=== PATIENT | male | born 1940 | race Caucasian/White ===

== ENCOUNTER 2019-04-27 13:41 | Emergency (ER) | payer MEDICARE, BC ==
--- OUTSIDE RECORDS SUMMARY | 2019-04-27 13:50 | XMS REPORT | Continuity of Care Document ---
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 Onset: 06/23/2012 Benign essential hypertension Gene Francis M.D. Onset: 06/23/2012 Mitral valve disorder Gene Francis M.D. Onset: 06/23/2012 Paroxysmal supraventricular tachycardia Gene Francis M.D. Onset: 11/24 Aortic valve disorder Gene Francis M.D. Onset: 05/31/2013 Coronary arteriosclerosis Lianet Atwood M.D. Onset: 06/19/2013 Essential hypertension Gene Francis M.D. Onset: 08/21/2013 Tibialis tendinitis Edinson Broderick MD Onset: 07/27/2017 Tendon contracture Edinson Broderick MD Onset: 07/27/2017 Social History Type Date Description Comments Sex Unknown Tobacco Use Start: Unknown Never Smoked Cigarettes Smoking Status Reviewed: 04/14/19 Never Smoked Cigarettes ETOH Use Drinks 3 Alcoholic Beverages Per Day Tobacco Use Start: Unknown Patient has never smoked Recreational Drug Use Denies Drug Use Exercise Type/Frequency Does not exercise walking gardening weather permitting Allergies, Adverse Reactions, Alerts Active Allergies Reaction Severity Comments Date Penicillins rash 06/23/2012 Sulfa rash 06/23/2012 Inactive Allergies NKDA 06/23/2012 Medications Active Medications SIG Qnty Indications Ordering Provider Date Amlodipine Besylate 1 by mouth every 30tabs Gene Yap 09/07/2018 day Dav Francis 2.5mg Tablets Aldactone 1 by mouth every 90tabs Gene Yap 11/17/2017 25mg Tablets day Dav Francis Aspirin Childrens 1 tab po daily 30units Gene Yap 02/04/2012 81mg Dav Francis Chewtabs Vitamin D3 Super 1 po daily Unknown Strength 2000Unit Tablets Naprosyn 1 by mouth every Unknown 500mg Tablets morning Gabapentin 1 capsule bid Unknown 100mg Capsules Medications Administered in Office Medication SIG Qnty Indications Ordering Provider Date Depomedrol 40MG Ferny Wynne M.D. 09/09/2016 Injection Immunizations Description No Information Available Vital Signs Date Vital Result Comment 04/14/2019 10:31am Height 65 inches 5'5" Weight 188.00 lb Heart Rate 71 /min BP Systolic Sitting 120 mmHg BP Diastolic Sitting 70 mmHg Pain Level 2 BMI (Body Mass Index) 31.3 kg/m2 03/20/2019 2:00pm Height 65 inches 5'5" Weight 188.00 lb BP Systolic 142 mmHg BP Diastolic 84 mmHg Respiratory Rate 15 /min Body Temperature 98.2 F Pain Level 2 BMI (Body Mass Index) 31.3 kg/m2 Results Description No Information Available Procedures Date Code Description Status 02/21/2019 21643 EKG Tracing & Interpretation Completed 02/16/2019 69183 Nerve Conduction 11-12 Studies Completed 02/16/2019 16435 Needle Electromyography Complete, Five Or More Muscles Completed Studied Medical Devices Description No Information Available Encounters Type Date Location Provider Dx Diagnosis Office Visit 03/20/2019 [facility] Mitchell, G56.21 Lesion of ulnar 1:30p [facility] Demarco nerve, right upper limb Office Visit 02/21/2019 [facility] Gene Yap M54.2 Cervicalgia 3:20p Dav Francis R06.00 Dyspnea, unspecified I35.0 Nonrheumatic aortic (valve) stenosis I44.0 Atrioventricular block, first degree I10 Essential (primary) hypertension R00.1 Bradycardia, unspecified Office Visit 02/10/2019 11:30a [facility] M54.2 Cervicalgia Services Of Gene Coreas MD M47.22 Other spondylosis with radiculopathy, cervical region Assessments Date Code Description Provider 04/14/2019 M54.12 Cervical radiculopathy Ever Coreas MD 04/14/2019 M47.22 Other spondylosis with radiculopathy, Ever Coreas MD cervical region 03/20/2019 G56.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 03/07/2019 M54.12 Cervical radiculopathy REGINALDO Jones 02/21/2019 M54.2 Cervicalgia Gene Francis M.D. 02/21/2019 R06.00 Dyspnea, unspecified Gene Francis M.D. 02/21/2019 I35.0 Nonrheumatic aortic (valve) stenosis Gene Francis M.D. 02/21/2019 I44.0 Atrioventricular block, first degree Gene Francis M.D. 02/21/2019 I10 Essential (primary) hypertension Gene Francis M.D. 02/21/2019 R00.1 Bradycardia, unspecified Gene Francis M.D. 02/16/2019 M47.22 Other spondylosis with radiculopathy, Cheo Parrish MD cervical region 02/10/2019 M54.2 Cervicalgia Ever Coreas MD 02/10/2019 M47.22 Other spondylosis with radiculopathy, Ever Coreas MD cervical region Plan of Treatment Future Appointment(s):04/25/2019 2:00 pm - Basia Mcbride, N.P. at [facility]04/14/2019 - Ever Coreas, MDM54.12 Radiculopathy, cervical tmufypA88.22 Other spondylosis with radiculopathy, cervical regionFollow up:Rv prn Functional Status Description No Information Available Mental Status Description No Information Available Referrals Description No Information Available
--- OUTSIDE RECORDS SUMMARY | 2019-04-27 13:50 | XMS REPORT | Continuity of Care Document ---
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 Onset: 02/16/2012 Pure hypercholesterolemia Gene Farncis M.D. Onset: 06/23/2012 Benign essential hypertension Gene Francis M.D. Onset: 06/23/2012 Mitral valve disorder Gene Francis M.D. Onset: 06/23/2012 Paroxysmal supraventricular tachycardia Gene Francis M.D. Onset: 11/24 Aortic valve disorder Gene Francis M.D. Onset: 05/31/2013 Coronary arteriosclerosis Lianet Atwood M.D. Onset: 06/19/2013 Essential hypertension Gene Francis M.D. Onset: 08/21/2013 Tibialis tendinitis Edinson Broderick MD Onset: 07/27/2017 Tendon contracture Edinson Broderick MD Onset: 07/27/2017 Edema Edinson Broderick MD Onset: 04/26/2019 Localized, primary osteoarthritis of the Edinson Broderick MD Onset: 04/26/2019 ankle and/or foot Social History Type Date Description Comments Sex Unknown Tobacco Use Start: Unknown Never Smoked Cigarettes Smoking Status Reviewed: 04/26/19 Never Smoked Cigarettes ETOH Use Drinks 3 Alcoholic Beverages Per Day Tobacco Use Start: Unknown Patient has never smoked Recreational Drug Use Denies Drug Use Exercise Type/Frequency Does not exercise walking gardening weather permitting Allergies, Adverse Reactions, Alerts Active Allergies Reaction Severity Comments Date Penicillins rash 06/23/2012 Sulfa rash 06/23/2012 Inactive Allergies NKDA 06/23/2012 Medications Active Medications SIG Qnty Indications Ordering Provider Date Ibuprofen 200 400-600mg every Unknown 04/24/2019 200mg 6 hours as Tablets needed for pain. Amlodipine Besylate 1 by mouth every 90tabs Basia Mcbride, 09/07/2018 day N.P. 2.5mg Tablets Aldactone 1 by mouth every 90tabs Gene Yap 11/17/2017 25mg Tablets day Dav Francis Aspirin Childrens 1 tab po daily 30units Gene Yap 02/04/2012 81mg Dav Francis Chewtabs Vitamin D3 Super 1 po daily Unknown Strength 2000Unit Tablets Medications Administered in Office Medication SIG Qnty Indications Ordering Provider Date Depomedrol 40MG Ferny Wynne M.D. 09/09/2016 Injection Immunizations Description No Information Available Vital Signs Date Vital Result Comment 04/26/2019 3:48pm Height 65 inches 5'5" Weight 196.00 lb Heart Rate 72 /min BP Systolic 134 mmHg BP Diastolic 88 mmHg Respiratory Rate 15 /min Body Temperature 96.3 F Pain Level 7 BMI (Body Mass Index) 32.6 kg/m2 04/25/2019 1:53pm Height 65 inches 5'5" Weight 194.50 lb with crocs Heart Rate 60 /min radial, regular BP Systolic 152 mmHg recheck BP Diastolic 82 mmHg recheck BP Systolic Sitting 140 mmHg Ra, reg cuff BP Diastolic Sitting 88 mmHg Ra, reg cuff BP Systolic Standing 144 mmHg Ra, reg cuff BP Diastolic Standing 92 mmHg Ra, reg cuff BMI (Body Mass Index) 32.4 kg/m2 Ejection Fraction 60%-65% echo 10/03/18 Results Description No Information Available Procedures Date Code Description Status 02/21/2019 17444 EKG Tracing & Interpretation Completed 02/16/2019 51621 Nerve Conduction 11-12 Studies Completed 02/16/2019 63861 Needle Electromyography Complete, Five Or More Muscles Completed Studied Medical Devices Description No Information Available Encounters Type Date Location Provider Dx Diagnosis Office Visit 04/14/2019 [facility] M47.22 Other spondylosis 10:30a Services Of Gene Coreas MD with radiculopathy, cervical region M48.02 Spinal stenosis, cervical region Office Visit 03/20/2019 [facility] Dulce G56.21 Lesion of ulnar 1:30p at Adelso Mitchell M.D. nerve, right upper limb Office Visit 03/07/2019 Neuro[facility] Mohini Tejada, M54.12 Radiculopathy, 2:30p Services Of Gene HAIR cervical region Office Visit 02/21/2019 [facility] Gene Yap M54.2 Cervicalgia 3:20p Dav Francis R06.00 Dyspnea, unspecified I35.0 Nonrheumatic aortic (valve) stenosis I44.0 Atrioventricular block, first degree I10 Essential (primary) hypertension R00.1 Bradycardia, unspecified Office Visit 02/10/2019 11:30a [facility] M54.2 Cervicalgia Services Of Gene Coreas MD M47.22 Other spondylosis with radiculopathy, cervical region Assessments Date Code Description Provider 04/26/2019 M76.821 Posterior tibial tendinitis, right leg Edinson Broderick MD 04/26/2019 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 04/25/2019 I44.0 Atrioventricular block, first degree Basia Mcbride, N.P. 04/25/2019 I10 Essential (primary) hypertension Basia Mcbride N.P. 04/25/2019 E78.00 Pure hypercholesterolemia, unspecified Basia Mcbride, N.P. 04/14/2019 M47.22 Other spondylosis with radiculopathy, Ever Coreas MD cervical region 04/14/2019 M48.02 Spinal stenosis, cervical region Ever Coreas MD 03/20/2019 G56.21 Lesion of ulnar nerve, right [...] MD cervical region Plan of Treatment Future Appointment(s):07/28/2019 1:00 pm - Edinson Broderick MD at [facility] at [facility]/26/2019 - Edinson Broderick, MDM76.821 Posterior tibial tendinitis, right legReferral:[facility],Follow up: Follow Up: 3 months Needs hold and call ultrasound tomorrow for Right legM19.071 Primary osteoarthritis, right ankle and footR60.0 Localized edemaNew Xrays:VL Lower Ext Veins Right, Ordered: 04/26/19 Functional Status Description No Information Available Mental Status Description No Information Available Referrals Refer to Reason for Referral Status Appt Date [facility] Orthotics: Right Left Bilateral Sent Full-length custom Accommodative Medial Post 3/4 length custom Semi-Rigid Deep Heel UCBL Rigid Darden's extension Carbon fiber baseplate to shield 1st MP joint Carbon fiber baseplate, full length to shield midfoot Other: Braces: Right Left Bilateral Solid AFO Articulated AFO Kailey [employer]ace (custom leather ankle gauntlet) DONNA (Charcot Restraint Orthotic Walker) Marianne Brace Other: [address] [place] [address] [address] [place] [address] [phone]
--- OUTSIDE RECORDS SUMMARY | 2019-04-27 13:50 | XMS REPORT | Continuity of Care Document ---
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 Onset: 02/16/2012 Pure hypercholesterolemia Gene Francis M.D. [...] Unknown Never Smoked Cigarettes Smoking Status Reviewed: 03/07/19 Never Smoked Cigarettes ETOH Use Drinks 3 [...] Available Vital Signs Date Vital Result Comment 03/07/2019 2:33pm Height 65 inches 5'5" Weight 188.00 lb Heart Rate 77 /min BP Systolic Sitting 158 mmHg BP Diastolic Sitting 96 mmHg Respiratory Rate 18 /min Pain Level 7 O2 % BldC Oximetry 96 % BMI (Body Mass Index) 31.3 kg/m2 02/21/2019 3:15pm Height 65 inches 5'5" Weight 188.50 lb Heart Rate 78 /min BP Systolic Sitting 164 mmHg LA, reg BP Diastolic Sitting 86 mmHg LA, reg BP Systolic Standing 162 mmHg LA, reg BP Diastolic Standing 84 mmHg LA, reg BP Systolic Lying Down 148 mmHg la repeat sitting BP Diastolic Lying Down 82 mmHg la repeat sitting BMI (Body Mass Index) 31.4 kg/m2 Ejection Fraction 60%-65% 10/03/2018 echo Results Test Date Facility Test Result H/L Range Note Vitamin B12 And 09/12/2018 [facility] Vitamin B12 403 pg/mL Normal 180-914 1 Folate Serum [address] [place] [address] [phone] Folic Acid (Folate) 7.55 ng/mL >3.99 Lipid Profile 09/08/2018 [facility] Triglycerides 101 mg/dL 2 (Trig/Chol/HDL) [address] [place] [address] [phone] Cholesterol 225 mg/dL 3 HDL Cholesterol 72.0 mg/dL 4 LDL Cholesterol 133 mg/dL 5 CBC Auto 09/08/2018 [facility] White Blood 4.0 10^3/uL Normal 3.5-10.[address] [place] [address] [phone] Red Blood Count 3.97 10^6/uL Low 4.00-5.40 Hemoglobin 15.4 g/dL Normal 14.0-18.0 Hematocrit 44 % Normal 42-52 Mean Corpuscular Volume 111 fL High 80-94 Mean Corpuscular Hemoglobin 39 pg High 27-31 Mean Corpuscular HGB Conc 35 g/dL Normal 31-36 Red Cell Distribution Width 13 % Normal 10.5-15 Platelet Count 216 10^3/uL Normal 150-450 Mean Platelet Volume 7.8 fL Normal 7.4-10.4 Abs Neutrophils 2.5 10^3/uL Normal 1.5-7.7 Abs Lymphocytes 0.8 10^3/uL Low 1.0-4.8 Abs Monocytes 0.5 10^3/uL Normal 0-0.8 Abs Eosinophils 0.2 10^3/uL Normal 0-0.6 Abs Basophils 0.1 10^3/uL Normal 0-0.2 Abs Nucleated RBC 0 10^3/uL Granulocyte % 62.4 % Lymphocyte % 20.2 % Monocyte % 12.0 % Eosinophil % 3.9 % Basophil % 1.5 % Nucleated Red Blood Cells % 0.1 Laboratory 09/08/2018 [facility] TSH (Thyroid 2.16 Normal 0.34 -5.60 test finding [address] Stim Horm) mcIU/[place] [address] [phone] Cell 09/08/2018 [facility] Macrocytosis 2+ Morphology [address] [place] [address] [phone] CBC Auto Diff 09/08/2018 [facility] White Blood 4.0 Normal 3.5 -10.[address] Count 10^3/[place] [address] [phone] Red Blood Count 3.97 10^6/uL Low 4.00-5.40 Hemoglobin 15.4 g/dL Normal 14.0-18.0 Hematocrit 44 % Normal 42-52 Mean Corpuscular Volume 111 fL High 80-94 Mean Corpuscular Hemoglobin 39 pg High 27-31 Mean Corpuscular HGB Conc 35 g/dL Normal 31-36 Red Cell Distribution Width 13 % Normal 10.5-15 Platelet Count 216 10^3/uL Normal 150-450 Mean Platelet Volume 7.8 fL Normal 7.4-10.4 Abs Neutrophils 2.5 10^3/uL Normal 1.5-7.7 Abs Lymphocytes 0.8 10^3/uL Low 1.0-4.8 Abs Monocytes 0.5 10^3/uL Normal 0-0.8 Abs Eosinophils 0.2 10^3/uL Normal 0-0.6 Abs Basophils 0.1 10^3/uL Normal 0-0.2 Abs Nucleated RBC 0 10^3/uL Granulocyte % 62.4 % Lymphocyte % 20.2 % Monocyte % 12.0 % Eosinophil % 3.9 % Basophil % 1.5 % Nucleated Red Blood Cells % 0.1 Lipid Panel - 09/08/2018 [facility] Creatine 71 U/L Normal 10- [address] Kinase(CK) [place] [address] [phone] Comp Metabolic 09/08/2018 [facility] Sodium 136 Normal 135- [address] mmol/[place] [address] [phone] Potassium 4.4 mmol/L Normal 3.5-5.0 Chloride 100 mmol/L Low 101-111 Co2 Carbon Dioxide 27 mmol/L Normal 22-32 Anion Gap 9 mmol/L Normal 2-11 Glucose 101 mg/dL High 70-100 Blood Urea Nitrogen 13 mg/dL Normal 6-24 Creatinine 0.77 mg/dL Normal 0.67-1.17 BUN/Creatinine Ratio 16.9 Normal 8-20 Calcium 9.2 mg/dL Normal 8.6-10.3 Total Protein 7.2 g/dL Normal 6.4-8.9 Albumin 4.0 g/dL Normal 3.2-5.2 Globulin 3.2 g/dL Normal 2-4 Albumin/Globulin Ratio 1.3 Normal 1-3 Total Bilirubin 0.70 mg/dL Normal 0.2-1.0 Alkaline Phosphatase 65 U/L Normal 34-104 Alt 28 U/L Normal 7-52 Ast 29 U/L Normal 13-39 Egfr Non- 98.0 >60 Egfr 118.5 >60 6 Lipid Profile 09/08/2018 [facility] Triglycerides 101 mg/dL 7 (Trig/Chol/HDL) [address] [place] [address] [phone] Cholesterol 225 mg/dL 8 HDL Cholesterol 72.0 mg/dL 9 LDL Cholesterol 133 mg/dL 10 Laboratory 09/08/2018 [facility] TSH (Thyroid 2.16 Normal 0.34 -5.60 test finding [address] Stim Horm) mcIU/[place] [address] [phone] B-Type Natriuretic Peptide BNP 30 pg/mL <=100 Cell Morphology 09/08/2018 [facility] Macrocytosis 2+ [address] [place] [address] [phone] Comp Metabolic 09/08/2018 [facility] Sodium 136 Normal 135-[address] mmol/L 5 [place] [address] [phone] Potassium 4.4 mmol/L Normal 3.5-5.0 Chloride 100 mmol/L Low 101-111 Co2 Carbon Dioxide 27 mmol/L Normal 22-32 Anion Gap 9 mmol/L Normal 2-11 Glucose 101 mg/dL High 70-100 Blood Urea Nitrogen 13 mg/dL Normal 6-24 Creatinine 0.77 mg/dL Normal 0.67-1.17 BUN/Creatinine Ratio 16.9 Normal 8-20 Calcium 9.2 mg/dL Normal 8.6-10.3 Total Protein 7.2 g/dL Normal 6.4-8.9 Albumin 4.0 g/dL Normal 3.2-5.2 Globulin 3.2 g/dL Normal 2-4 Albumin/Globulin Ratio 1.3 Normal 1-3 Total Bilirubin 0.70 mg/dL Normal 0.2-1.0 Alkaline Phosphatase 65 U/L Normal 34-104 Alt 28 U/L Normal 7-52 Ast 29 U/L Normal 13-39 Egfr Non- 98.0 >60 Egfr 118.5 >60 11 Lipid Panel - 09/08/2018 [facility] Creatine 71 U/L Normal 10- [address] Kinase(CK) [place] [address] [phone] Laboratory test 09/08/2018 [facility] B-Type 30 pg/mL <=[address] [place] [address] Peptide BNP [phone] Normal Range 180 to 914 Indeterminate Range 145 to 180 Deficient Range <145 2 Desirable: <150 Borderline High: 150-199 High: 200-499 Very High: >500 3 Desirable: <200 Borderline High: 200-239 High: >239 4 Low: <40 Desirable: 40-60 High: >60 5 Desirable: <100 Near Optimal: 100-129 Borderline High: 130-159 High: 160-189 Very High: >189 6 Because ethnic data is not always readily available, this report includes an eGFR for both -Americans and non- Americans. The National Kidney Disease Education Program (NKDEP) does not endorse the use of the MDRD equation for patients that are not between the ages of 18 and 70, are , have extremes of body size, muscle mass, or nutritional status, or are non- or non-. According to the National Kidney Foundation, irrespective of diagnosis, the stage of the disease is based on the level of kidney function: Stage Description GFR(mL/min/1.73 m(2)) 1 Kidney damage with normal or decreased GFR 90 2 Kidney damage with mild decrease in GFR 60-89 3 Moderate decrease in GFR 30-59 4 Severe decrease in GFR 15-29 5 Kidney failure <15 (or dialysis) 7 Desirable: <150 Borderline High: 150-199 High: 200-499 Very High: >500 8 Desirable: <200 Borderline High: 200-239 High: >239 9 Low: <40 Desirable: 40-60 High: >60 10 Desirable: <100 Near Optimal: 100-129 Borderline High: 130-159 High: 160-189 Very High: >189 11 Because ethnic data is not always readily available, this report includes an eGFR for both -Americans and non- Americans. The National Kidney Disease Education Program (NKDEP) does not endorse the use of the MDRD equation for patients that are not between the ages of 18 and 70, are , have extremes of body size, muscle mass, or nutritional status, or are non- or non-. According to the National Kidney Foundation, irrespective of diagnosis, the stage of the disease is based on the level of kidney function: Stage Description GFR(mL/min/1.73 m(2)) 1 Kidney damage with normal or decreased GFR 90 2 Kidney damage with mild decrease in GFR 60-89 3 Moderate decrease in GFR 30-59 4 Severe decrease in GFR 15-29 5 Kidney failure <15 (or dialysis) Procedures Date Code Description Status 02/21/2019 60497 EKG Tracing & Interpretation Completed 02/16/2019 57524 Nerve Conduction 11-12 Studies Completed 02/16/2019 74102 Needle Electromyography Complete, Five Or More Muscles Completed Studied 10/03/2018 89423 ECHO Transthoracic, Real-Time 2D With Doppler And Color Completed Flow 10/03/2018 20475 ECHO Transthoracic, Real-Time 2D With Doppler And Color Completed Flow Medical Devices Description No Information Available Encounters Type Date Location Provider Dx Diagnosis Office Visit 02/21/2019 [facility] Gene Francis, M54.2 Cervicalgia 3:20p M.Claude R06.00 Dyspnea, unspecified I35.0 Nonrheumatic aortic (valve) stenosis I44.0 Atrioventricular block, first degree I10 Essential (primary) hypertension R00.1 Bradycardia, unspecified Office Visit 02/10/2019 11:30a [facility] M54.2 Cervicalgia Services Of Gene Coreas MD M47.22 Other spondylosis with radiculopathy, cervical region Office Visit 10/10/2018 10:30a [facility] Basia Hedrick R06.00 Dyspnea, Foster, N.P. unspecified I35.0 Nonrheumatic aortic (valve) stenosis I44.0 Atrioventricular block, first degree I10 Essential (primary) hypertension E78.00 Pure hypercholesterolemia, unspecified Assessments Date Code Description Provider 03/07/2019 M54.12 Cervical radiculopathy REGINALDO Jones 02/21/2019 [...] with radiculopathy, Ever Coreas MD cervical region 10/10/2018 R06.00 Dyspnea, unspecified Basia Mcbride, N.P. 10/10/2018 I35.0 Nonrheumatic aortic (valve) stenosis Basia Mcbride, N.P. 10/10/2018 I44.0 Atrioventricular block, first degree Basia Mcbride, N.P. 10/10/2018 I10 Essential (primary) hypertension Basia Mcbride, N.P. 10/10/2018 E78.00 Pure hypercholesterolemia, unspecified Basia Mcbride, N.P. 10/03/2018 R06.00 Dyspnea, unspecified Gene Francis M.D. 10/03/2018 R06.00 Dyspnea, unspecified [facility] 10/03/2018 I35.0 Nonrheumatic aortic (valve) stenosis [facility] Plan of Treatment Future Appointment(s):04/25/2019 2:00 pm - Basia Mcbride[facility] N.P. at [facility]04/14/2019 10:30 am - Ever Coreas MD at [facility]03/07/2019 - Mohini Tejada PAM54.12 Radiculopathy, cervical regionNew Therapy:Physical TherapyFollow up:RTC in [address] Coreas Functional Status Description No Information Available Mental Status Description No Information Available Referrals Description No Information Available
--- OUTSIDE RECORDS SUMMARY | 2019-04-27 13:50 | XMS REPORT | Continuity of Care Document ---
:1940 External Reference #:[id number] Author Name Basia Mcbride N.P. (transmitted by agent of provider Felicita Shelton) Address [address] 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 Amlodipine Besylate 1 by mouth every 30tabs [...] Available Vital Signs Date Vital Result Comment 04/25/2019 1:53pm Height 65 inches 5'5" Weight [...] 32.4 kg/m2 Ejection Fraction 60%-65% echo 10/03/18 04/14/2019 10:31am Height 65 inches 5'5" Weight 188.00 lb Heart Rate 71 /min BP Systolic Sitting 120 mmHg BP Diastolic Sitting 70 mmHg Pain Level 2 BMI (Body Mass Index) 31.3 kg/m2 Results Description No Information Available Procedures Date Code Description Status 02/21/2019 86580 EKG Tracing & Interpretation Completed 02/16/2019 38904 Nerve Conduction 11-12 Studies Completed 02/16/2019 04776 Needle Electromyography Complete, Five Or More Muscles Completed Studied Medical Devices Description No Information Available Encounters Type Date Location Provider Dx Diagnosis Office Visit 04/14/2019 [facility] 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 nerve, right upper limb Office Visit 03/07/2019 [facility] Tejada, M54.12 Radiculopathy, 2:30p [facility] cervical region Office Visit 02/21/2019 [facility] Gene Ypa M54.2 Cervicalgia 3:20p Dav Francis R06.00 Dyspnea, unspecified I35.0 Nonrheumatic aortic (valve) stenosis I44.0 Atrioventricular block, first degree I10 Essential (primary) hypertension R00.1 Bradycardia, unspecified Office Visit 02/10/2019 11:30a [facility] M54.2 C[facility] MD M47.22 Other spondylosis with radiculopathy, cervical region Assessments Date Code Description Provider 04/25/2019 I35.0 Nonrheumatic aortic (valve) stenosis Basia Mcbride, N.P. 04/25/2019 I44.0 Atrioventricular block, first degree Basia Mcbride, N.P. 04/25/2019 I10 Essential (primary) hypertension Basia Mcbride, N.P. 04/25/2019 E78.00 Pure hypercholesterolemia, unspecified Basia [...] MD cervical region Plan of Treatment Future Appointment(s):04/26/2019 3:15 pm - Edinson Broderick MD at [facility] [place]/25/2019 - Basia Mcbride N.P.I35.0 Nonrheumatic aortic (valve) stenosisNew Orders:Echocardiogram, Ordered: 04/25/19Follow up:[facility] 2019 with echo fuwhsS59.0 Atrioventricular block, first occlyeM47 Essential ( primary) hypertensionRecommendations:BPs look good have cuff rechecked at ortho office and call us if it is not accurate.E78.00 Pure hypercholesterolemia, unspecified Functional Status Description No Information Available Mental Status Description No Information Available Referrals Description No Information Available
--- OUTSIDE RECORDS SUMMARY | 2019-04-27 13:50 | XMS REPORT | Continuity of Care Document ---
:1940 External Reference #:[id number] Author Name Dulce Mitchell M.D. 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 Onset: 02/16/2012 Pure hypercholesterolemia Gene Francis [...] Unknown Never Smoked Cigarettes Smoking Status Reviewed: 03/20/19 Never Smoked Cigarettes ETOH Use Drinks 3 [...] Available Vital Signs Date Vital Result Comment 03/20/2019 2:00pm Height 65 inches 5'5" Weight 188.00 lb BP Systolic 142 mmHg BP Diastolic 84 mmHg Respiratory Rate 15 /min Body Temperature 98.2 F Pain Level 2 BMI (Body Mass Index) 31.3 kg/m2 03/07/2019 2:33pm Height 65 inches 5'5" Weight 188.00 lb Heart Rate 77 /min BP Systolic Sitting 158 mmHg BP Diastolic Sitting 96 mmHg Respiratory Rate 18 /min Pain Level 7 O2 % BldC Oximetry 96 % BMI (Body Mass Index) 31.3 kg/m2 Results Description No Information Available Procedures Date Code Description Status 02/21/2019 24379 EKG Tracing & Interpretation Completed 02/16/2019 60856 Nerve Conduction 11-12 Studies Completed 02/16/2019 28780 Needle Electromyography Complete, Five Or More Muscles Completed Studied 10/03/2018 37177 ECHO Transthoracic, Real-Time 2D With Doppler And Color Completed Flow 10/03/2018 76151 ECHO Transthoracic, Real-Time 2D With Doppler And Color Completed Flow Medical Devices Description No Information Available Encounters Type Date Location Provider Dx Diagnosis Office Visit 02/21/2019 [facility] Gene Francis M54.2 Cervicalgia 3:20p M.D. R06.00 Dyspnea, unspecified I35.0 Nonrheumatic aortic (valve) stenosis I44.0 Atrioventricular block, first degree I10 Essential (primary) hypertension R00.1 Bradycardia, unspecified Office Visit 02/10/2019 11:30a [facility] M54.2 [facility] MD M47.22 Other spondylosis with radiculopathy, cervical region Office Visit 10/10/2018 10:30a [facility] Basia S. R06.00 Dyspnea, Foster, N.P. unspecified I35.0 Nonrheumatic aortic (valve) stenosis I44.0 Atrioventricular block, first degree I10 Essential (primary) hypertension E78.00 Pure hypercholesterolemia, unspecified Assessments Date Code Description Provider 03/20/2019 G56.21 Lesion of ulnar nerve, right [...] N.P. 10/10/2018 I10 Essential (primary) hypertension Basia Mcbride N.P. 10/10/2018 E78.00 Pure hypercholesterolemia, unspecified Basia Mcbride N.P. 10/03/2018 R06.00 Dyspnea, unspecified Gene Francis M.D. 10/03/2018 R06.00 Dyspnea, unspecified [facility] 10/03/2018 I35.0 Nonrheumatic aortic (valve) stenosis [facility] Schedule Plan of Treatment Future Appointment(s):04/25/2019 2:00 pm - Basia Mcbride N.P. at [facility]04/14/2019 10:30 am - Ever oCreas MD at [facility]03/20/2019 - Dulce Mitchell M.D.G56.21 Lesion of ulnar nerve, right upper limbFollow up:Follow up: As needed Functional Status Description No Information Available Mental Status Description No Information Available Referrals Description No Information Available
--- NOTE | 2019-04-27 15:10 | ED ---
Lower Extremity - HPI Summary HPI Summary: Pt is a 79 y/o M presenting to the ED for a chief complaint of right lower extremity pain. Pt is present with his . Pt states he has a blood clot and edema with pain in the right leg. On 04/21/19, pt was taking a walk of 0.5 miles and as he was walking, he felt pain in the right lower leg. By the end of the walk, pt felt the right leg pain. Pt denies any fever, chills, erythema of eyes, sore throat, CP, chest tightness, palpitations, SOB, cough, abdominal pain , N/V, dysuria, hematuria, rash, or dizziness. Pt denies traveling recently or a fall. Pt has a PMHx of pinched nerves in neck without being bedbound and balance problems, but does not use a cane. Pt denies FMHx of blood clots. Pt denies smoking. Pts PCP is Dr. Ancelmo Berry. Pt takes baby aspirin once a day. - History of Current Complaint Chief Complaint: EDExtremityUpper Stated Complaint: BLOOD CLOTT IN RIGHT LEG Time Seen by Provider: 04/27/19 14:52 Hx Obtained From: Patient Onset of Pain: Days Onset/Duration: Days Severity Initially: Mild Severity Currently: Mild Pain Intensity: 3 Pain Scale Used: 0-10 Numeric Timing: Lasting Days Location: Is Discrete @ - Right LE Associated Signs And Symptoms: Positive: Swelling - Right LE. Negative: Fever, Dizziness, Abdominal Pain Aggravating Factor(s): Movement - Right LE myalgia began while walking Alleviating Factor(s): Nothing Able to Bear Weight: Yes - Allergies/Home Medications Allergies/Adverse Reactions: Allergies Allergy/AdvReac Type Severity Reaction Status Date / Time Penicillins Allergy Intermediate Rash Verified 02/14/19 13:00 Sulfa (Sulfonamide Allergy Intermediate Rash Verified 02/14/19 13:00 Antibiotics) Home Medications: Home Medications Amlodipine Besylate [Amlodipine 2.5 mg tab] 2.5 mg PO DAILY 04/27/19 [History Confirmed 04/27/19] Ibuprofen TAB* [Motrin TAB* 600 MG] 400 - 600 mg PO Q6H PRN 04/27/19 [History Confirmed 04/27/19] Spironolactone TAB* [Aldactone TAB*] 25 mg PO DAILY 04/27/19 [History Confirmed 04/27/19] PMH/Surg Hx/FS Hx/Imm Hx Previously Healthy: Yes Endocrine/Hematology History: Denies: Hx Diabetes Cardiovascular History: Reports: Hx Hypertension - ON MEDICATION FOR, Hx Peripheral Vascular Disease, 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 VARGAS FOLLOWS Denies: Hx Pacemaker/ICD History: Denies: Hx Renal Disease Musculoskeletal History: Reports: Hx Arthritis Sensory History: Reports: Hx Contacts or Glasses - GLASSES FOR DISTANCE, Hx Hearing Aid - BILATERAL Opthamlomology History: Reports: Hx Contacts or Glasses - GLASSES FOR DISTANCE Psychiatric History: Denies: Hx Panic Disorder - Surgical History Surgical History: Yes Surgery Procedure, Year, and Place: LEFT GREAT TOE IMPLANT FOR ARTHRITIS- [facility]. RIGHT GREAT TOE IMPLANT FOR ARTHRITIS- [facility]. LEFT INGUINAL HERNIA REPAIR- [facility]. RIGHT INGUINA HERNIA REPAIR- [facility]. RIGHT ROTATOR CUFF REPAIR- [facility]. LEFT ROTATOR CUFF REPAIR- [facility] Hx Anesthesia Reactions: No Infectious Disease History: No Infectious Disease History: Denies: Traveled Outside the [place] in Last 30 Days - Family History Known Family History: Negative: Diabetes - Social History Alcohol Use: Daily Alcohol Amount: 3 drinks nightly Substance Use Type: Reports: None Smoking Status (MU): Never Smoked Tobacco Review of Systems Negative: Fever, Chills Negative: Erythema Negative: Sore Throat Positive: Other - Blood clot in right LE; negative chest tightness. Negative: Palpitations, Chest Pain Negative: Shortness Of Breath, Cough Negative: Abdominal Pain, Vomiting, Nausea Negative: dysuria, hematuria Positive: Myalgia - Right LE, Edema - Right LE Negative: Rash Neurological: Other - Negative dizziness All Other Systems Reviewed And Are Negative: Yes Physical Exam - Summary Physical Exam Summary: Constitutional: Well-developed, Well-nourished, Alert. (-) Distressed Skin: Warm, Dry HENT: Normocephalic; Atraumatic Eyes: Conjunctiva normal Neck: Musculoskeletal ROM normal neck. (-) JVD, (-) Stridor, (-) Tracheal deviation Cardio: Rhythm regular, rate normal, Heart sounds normal; Intact distal pulses; The pedal pulses are 2+ and symmetric. Radial pulses are 2+ and symmetric. (-) Murmur Pulmonary/Chest wall: Effort normal. (-) Respiratory distress, (-) Wheezes, (-) Rales Abd: Soft, (-) tenderness, (-) Distension, (-) Guarding, (-) Rebound Musculoskeletal: (-) Edema. No appreciable swelling or tenderness, distal sensation and pulses intact. Lymph: (-) Cervical adenopathy Neuro: Alert, Oriented x3 Psych: Mood and affect Normal Triage Information Reviewed: Yes Vital Signs On Initial Exam: Initial Vitals Temp Pulse Resp BP Pulse Ox 97.9 F 64 18 149/102 96 04/27/19 13:43 04/27/19 13:43 04/27/19 13:43 04/27/19 13:43 04/27/19 13:43 Vital Signs Reviewed: Yes Procedures - Sedation Patient Received Moderate/Deep Sedation with Procedure: No Diagnostics - Vital Signs Vital Signs Temp Pulse Resp BP Pulse Ox 04/27/19 13:43 97.9 F 64 18 149/102 96 - Laboratory Result Diagrams: 04/27/19 15:14 04/27/19 15:14 Lab Statement: Any lab studies that have been ordered have been reviewed, and results considered in the medical decision making process. Lower Extremity Course/Dx - Course Course Of Treatment: Pt is a 79 y/o M presenting to the ED for a chief complaint of right lower extremity pain. Pt is present with his . Pt states he has a blood clot and edema with pain in the right leg. On 04/21/19, pt was taking a walk of 0.5 miles and as he was walking, he felt pain in the right lower leg. By the end of the walk, pt felt the right leg pain. Pt denies any fever, chills, erythema of eyes, sore throat, CP, chest tightness, palpitations , SOB, cough, abdominal pain, N/V, dysuria, hematuria, rash, or dizziness. Pt denies traveling recently or a fall. Pt has a PMHx of pinched nerves in neck without being bedbound and balance problems, but does not use a cane. Pt denies FMHx of blood clots. Pt denies smoking. Pts PCP is Dr. Ancelmo Berry. Pt takes baby aspirin once a day. On exam, pt had no appreciable swelling or tenderness, distal sensation and pulses intact. Laboratory abnormal findings: RBC 3.87, MCV 111, MCH 39. In the ED course, pt was given Rivaroxaban 15 mg PO. Pt will be discharged home with a diagnosis of DVT. Follow up with PCP in 2 -3 days. - Diagnoses Provider Diagnoses: DVT (deep venous thrombosis) Discharge ED - Sign-Out/Discharge Documenting (check all that apply): Patient Departure - Discharge - Discharge Plan Condition: Stable Disposition: HOME Prescriptions: Rivaroxaban TAB(*) [Xarelto 15 mg(*)] 15 mg PO BID #42 tab Patient Education Materials: Deep Vein Thrombosis (ED) Referrals: Ancelmo Mitchell MD [Primary Care Provider] - Additional Instructions: Return to ED for any new or worsening symptoms. Follow up with PCP in 2-3 days. - Billing Disposition and Condition Condition: STABLE Disposition: Home - Attestation Statements Document Initiated by Scribe: Yes Documenting Scribe: Cathy Viera Provider For Whom Yovanny is Documenting (Include Credential): Humberto Berg MD. Scribe Attestation: Cathy Vizcarra scribed for Humberto Berg MD. on 05/15/19 at 1038. Scribe Documentation Reviewed: Yes Provider Attestation: The documentation as recorded by the Cathy pimentel accurately reflects the service I personally performed and the decisions made by Humberto jesus MD. Status of Scribe Document: Viewed
[2019-04-27 15:49] LABS: Activated Partial Thrombo Time 34.3 seconds (26.0-38.0); INR 0.99 (0.82-1.09)
[2019-04-27 15:50] LABS: Hematocrit 43 % (42-52); Hemoglobin 15.2 g/dL (14.0-18.0); Mean Corpuscular HGB Conc 35 g/dL (31-36); Mean Corpuscular Hemoglobin 39 pg (27-31); Mean Corpuscular Volume 111 fL (80-94); Mean Platelet Volume 7.7 fL (7.4-10.4); Platelet Count 215 10^3/uL (150-450); Red Blood Count 3.87 10^6 /uL (4.18-5.48); Red Cell Distribution Width 13 % (10-15); White Blood Count 5.2 10^3/uL (3.5-10.8)
[2019-04-27 15:52] LABS: Albumin/Globulin Ratio 1.3 (1-3); Calcium 9.2 mg/dL (8.6-10.3); EGFR African American 113.1 (>60); EGFR Non-African American 93.5 (>60); Potassium 3.9 mmol/L (3.5-5.0); Total Bilirubin 0.7 mg/dL (0.2-1.0)
[2019-04-27] MEDS ORDERED: Rivaroxaban TAB(*) 15 MG PO ONE (16:07)
[2019-04-27 16:33] VITALS: BP 124/84
== END 2019-04-27 16:33 | disposition home or self-care (01) ==
LOC: ED 13:41
DX: I82.401 Acute embolism and thrombosis of unspecified deep veins of right lower extremity (principal); I10 Essential (primary) hypertension; Z79.82 Long term (current) use of aspirin; Z79.899 Other long term (current) drug therapy; Z88.0 Allergy status to penicillin; Z88.2 Allergy status to sulfonamides; R60.0 Localized edema
CPT/HCPCS: 36415; 80053; 85027; 85610; 85730; 99282

== ENCOUNTER 2022-05-11 17:15 | Inpatient (IN) ==
[2022-05-11 19:20] LABS: ABS Eosinophils 0.1 10^3/ul (0-0.6); ABS Lymphocytes 0.7 10^3/ul (1.0-4.8); ABS Monocytes 0.5 10^3/ul (0-0.8); ABS Neutrophils 5.2 10^3/ul (1.5-7.7); Eosinophil % 1.9 %; Hematocrit 37 % (42-52); Hemoglobin 12.5 g/dL (14.0-18.0); Lymphocyte % 10.7 %; Mean Corpuscular HGB Conc 34 g/dL (31-36); Mean Corpuscular Hemoglobin 40 pg (27-31); Mean Corpuscular Volume 118 fL (80-94); Mean Platelet Volume 8.8 fL (7.4-10.4); Nucleated Red Blood Cells % 0.2; Platelet Count 129 10^3/uL (150-450); Red Blood Count 3.11 10^6 /uL (4.18-5.48); Red Cell Distribution Width 14 % (10-15); White Blood Count 6.6 10^3/uL (3.5-10.8)
[2022-05-11 19:45] LABS: Calcium 8.7 mg/dL (8.6-10.3); Magnesium 1.8 mg/dL (1.9-2.7); Phosphorus 3.5 mg/dL (2.5-5.0); Potassium 4.1 mmol/L (3.5-5.0); eGFR CKD-EPI 94.7 (>60)
[2022-05-12 06:12] LABS: ABS Basophils 0.1 10^3/ul (0-0.2); ABS Eosinophils 0.2 10^3/ul (0-0.6); ABS Lymphocytes 0.7 10^3/ul (1.0-4.8); ABS Monocytes 0.6 10^3/ul (0-0.8); ABS Neutrophils 4.1 10^3/ul (1.5-7.7); Eosinophil % 3.5 %; Hematocrit 36 % (42-52); Hemoglobin 12.2 g/dL (14.0-18.0); Lymphocyte % 11.8 %; Mean Corpuscular HGB Conc 34 g/dL (31-36); Mean Corpuscular Hemoglobin 40 pg (27-31); Mean Corpuscular Volume 118 fL (80-94); Mean Platelet Volume 9.2 fL (7.4-10.4); Nucleated Red Blood Cells % 0.2; Platelet Count 119 10^3/uL (150-450); Red Blood Count 3.07 10^6 /uL (4.18-5.48); Red Cell Distribution Width 14 % (10-15); White Blood Count 5.7 10^3/uL (3.5-10.8)
[2022-05-12 08:19] LABS: Calcium 8.7 mg/dL (8.6-10.3); Potassium 4.3 mmol/L (3.5-5.0)
[2022-05-12 08:25] LABS: eGFR CKD-EPI 93.4 (>60)
[2022-05-12] MEDS ORDERED: Clindamycin 900 MG/D5W BAG 900 MG/50 ML BAG IVPB ONE (08:38)
[2022-05-12] MEDS ORDERED: NS 0.9% 1000 ml BAG 1,000 ML IV SCH (08:45)
[2022-05-12] MEDS ORDERED: Influenza vaccine *QUAD* *2022-23* 0.5 ML SYRINGE IM ONE (09:00)
[2022-05-12] MEDS ORDERED: Midazolam 5 mg/5 ml VIAL 1 mg/ml 5 ml VIAL (5 mg) ONE (14:26)
[2022-05-12] MEDS ORDERED: fentaNYL 100 mcg/2 ml 50 MCG/ML VIAL ONE (14:26)
[2022-05-12] MEDS ORDERED: Lidocaine 1% MPF 5 ML VIAL ONE ×2 (14:27→14:44)
[2022-05-13] MEDS ORDERED: Influenza vaccine *QUAD* *2022-23* 0.5 ML SYRINGE IM ONE ×2 (06:34→06:41)
[2022-05-13 06:39] LABS: ABS Eosinophils 0.2 10^3/ul (0-0.6); ABS Lymphocytes 0.6 10^3/ul (1.0-4.8); ABS Monocytes 0.6 10^3/ul (0-0.8); ABS Neutrophils 5.1 10^3/ul (1.5-7.7); Eosinophil % 2.8 %; Hematocrit 42 % (42-52); Lymphocyte % 8.6 %; Mean Corpuscular HGB Conc 34 g/dL (31-36); Mean Corpuscular Hemoglobin 40 pg (27-31); Mean Corpuscular Volume 120 fL (80-94); Mean Platelet Volume 8.6 fL (7.4-10.4); Nucleated Red Blood Cells % 0.1; Platelet Count 104 10^3/uL (150-450); Red Blood Count 3.47 10^6 /uL (4.18-5.48); Red Cell Distribution Width 14 % (10-15); White Blood Count 6.5 10^3/uL (3.5-10.8)
[2022-05-13 07:29] LABS: Blood Urea Nitrogen 10 mg/dL (6-24); CO2 Carbon Dioxide 23 mmol/L (22-32); Calcium 8.7 mg/dL (8.6-10.3); Chloride 103 mmol/L (101-111); Glucose 91 mg/dL (70-100); Sodium 134 mmol/L (135-145); eGFR CKD-EPI 98.5 (>60)
[2022-05-13 08:13] LABS: Anion Gap 8 mmol/L (2-11)
[2022-05-13] MEDS ORDERED: Furosemide 20 mg/2 ml IV VIAL IV ONE (11:05)
[2022-05-13 12:27] LABS: Magnesium 1.8 mg/dL (1.9-2.7); Potassium Redraw 4.3 mmol/L (3.5-5.0)
[2022-05-13 14:29] VITALS: BP 134/95
[2022-05-14 18:57] LABS: Anaplasma phagocytophilum Negative (Negative); B. miyamotoi PCR, B Negative (Negative); Babesia divergens/MO-1 Negative (Negative); Babesia ducani Negative (Negative); Ehrlichia chaffeensis Negative (Negative); Ehrlichia ewingii/canis Negative (Negative); Ehrlichia muris eauclairensis Negative (Negative)
== END 2022-05-13 14:28 | disposition home or self-care (01) | DRG 244 ==
LOC: ICU 17:15
PROVIDERS: ADMIT Surgery Surgical Critical Care; ATTEND Surgery Surgical Critical Care